=== PATIENT | male | born 1945 | race Caucasian/White ===

== ENCOUNTER → 2020-03-30 | Outpatient (CLI) | payer OTHER ==
[~2020-03-30] MED LIST: GADOTERATE 7.5 MMOL/15 ML VIAL ONE
== END | disposition home or self-care (01) ==
LOC: EDSTATUS 03-15 10:00 → CFH 10:37 → EDSTATUS 10:45
DX: K80.20 Calculus of gallbladder without cholecystitis without obstruction (principal); K82.8 Other specified diseases of gallbladder; E27.8 Other specified disorders of adrenal gland
CPT/HCPCS: 74183; A9575

== ENCOUNTER 2020-05-07 19:25 | Emergency (ER) | payer OTHER ==
[~2020-05-07] VITALS: Ht 177.8 cm; Wt 60.0 kg
[~2020-05-07 19:25] MED LIST changes: +ACET-1600 PO; +FAMO40TA4 PO; -GADOTERATE 7.5 MMOL/15 ML VIAL ONE; +OMEP20TA62 PO; +TRAM50TA2 PO
--- NOTE | 2020-05-07 19:43 | NUR ---
Patient comes in with complaints of withdrawal sx. Patient states that they started late last night. Patient stated that he takes tramadol 50mg q4 hours since June. Started taking it in June. Patient sitting on the edge of the bed with hand next to his ears and eyes closes. Provider at bedside at this time
[2020-05-07] MEDS ORDERED: ONDANSETRON ODT 4 MG ONE (19:51)
[2020-05-07] MEDS ORDERED: ONDANSETRON ODT 4 MG PO ONE (20:00)
[2020-05-07 20:58] LABS: BASOPHILS % (AUTO) 1 % (0-1); EOSINOPHILS % (AUTO) 1 % (1-7); LYMPHOCYTES % (AUTO) 17 % (22-44); MEAN CORPUSCULAR HEMOGLOBIN 29.5 pg (27.5-34.5); MEAN CORPUSCULAR HGB CONC 33.6 g/dL (33.2-36.2); MEAN PLATELET VOLUME 7.4 fL (7.4-10.4); MONOCYTES % (AUTO) 9 % (2-9); NEUTROPHILS % (AUTO) 72 % (42-75); PLATELET COUNT 180 x10^3/uL (130-400); RED BLOOD COUNT 3.66 x10^6/uL (4.38-5.82); RED CELL DISTRIBUTION WIDTH 17.4 % (9.4-14.8)
[2020-05-07 21:06] LABS: MD NO
[2020-05-07 21:10] LABS: ANION GAP 6 mmol/L (5-15); CHLORIDE 101 mmol/L (98-107); CREATININE 0.99 mg/dL (0.7-1.3)
[2020-05-07] MEDS ORDERED: POTASSIUM CHLORIDE 20 MEQ TAB.ER.PRT ONE (21:26)
[2020-05-07] MEDS ORDERED: POTASSIUM CHLORIDE 20 MEQ TAB.ER.PRT PO ONE (21:30)
[2020-05-07 21:33] VITALS: BP 116/68
== END 2020-05-07 21:35 | disposition home or self-care (01) ==
LOC: ED 20:25
DX: R10.84 Generalized abdominal pain (principal); F11.23 Opioid dependence with withdrawal
CPT/HCPCS: 36415; 80048; 82040; 83690; 85025; 99284; Q0162

== ENCOUNTER → 2020-06-13 | Outpatient (CLI) | payer OTHER ==
[~2020-06-13] MED LIST changes: +FINA5TAB4 PO; +TAMS-11 PO
== END | disposition home or self-care (01) ==
LOC: STAR 13:44
PROVIDERS: ATTEND Internal Medicine Gastroenterology
DX: Z01.818 Encounter for other preprocedural examination (principal); E80.6 Other disorders of bilirubin metabolism
CPT/HCPCS: 93005